=== PATIENT | male | born 1960 | race Caucasian/White ===

== ENCOUNTER 2021-08-18 07:17 | Emergency (ER) | payer MEDICAID ==
[~2021-08-18] VITALS: Ht 175.3 cm; Wt 74.8 kg
--- NOTE | 2021-08-18 07:51 | NUR ---
DR FAIRCHILD AT BEDSIDE FOR EVALUATION.
--- NOTE | 2021-08-18 08:06 | NUR ---
Patient does not wish to proceed with medical care recommended by Dr. Justin Mcelroy ). Patient given information related to possible complications, up to and including , which could occur as a result of leaving the hospital at this time. Patient verbalizes understanding of risks involved due to leaving against medical advice. Patient has signed AMA form.
== END 2021-08-18 08:10 | disposition home or self-care (01) ==
LOC: ER 07:17
DX: R10.9 Unspecified abdominal pain (principal)
CPT/HCPCS: A4663

== ENCOUNTER 2022-10-22 16:43 | Emergency (ER) | payer MEDICAID ==
[~2022-10-22] VITALS: Ht 175.3 cm; Wt 73.9 kg
[2022-10-22 18:07] LABS: *BILIRUBIN,URIN 1+ (NEGATIVE); *BLOOD, URINE 2+ (NEGATIVE); *CLARITY,URINE CLOUDY (CLEAR); *COLOR,URINE DARK YELLOW (YELLOW); *KETONES,URINE NEGATIVE (NEGATIVE); LEUKOCYTE ESTERASE ,URINE 1+ (NEGATIVE); NITRITE, URINE NEGATIVE (NEGATIVE); PH,URINE 5.5 (5.0-8.0); UGLUCOSE NEGATIVE (NEGATIVE)
[2022-10-22 18:28] LABS: HEMATOCRIT 43.2 % (36.7-47.1); MEAN CORPUSCULAR HEMOGLOBIN 31.3 uug (23.8-33.4); MEAN CORPUSCULAR VOLUME 93.1 fL (73.0-96.2); PLATELET COUNT (AUTO) 168 K/uL (152-348)
--- NOTE | 2022-10-22 18:30 | NUR ---
CT in process
[2022-10-22 18:34] LABS: CREATININE 1.3 mg/dL (0.6-1.3)
[2022-10-22 18:39] LABS: BILIRUBIN,DIRECT 0.3 mg/dL (0.0-0.2); BILIRUBIN,TOTAL 1.3 mg/dL (0.2-1.0); TOTAL PROTEIN, SERUM 7.3 g/dL (6.4-8.2)
[2022-10-22] MEDS ORDERED: SWABABLE VALVE TRANSFER SET EA MC ONE (18:41)
[2022-10-22] MEDS ORDERED: IOHEXOL 300MG/ML 100 ML INFUS..BTL ONE (18:41)
[2022-10-22] MEDS ORDERED: IV NORMAL SALINE 250 ML IV ONE (18:42)
[2022-10-22] MEDS ORDERED: IV NORMAL SALINE 500 ML IV ONE (20:15)
[2022-10-22 21:29] VITALS: BP 130/80; O2SAT 98
--- NOTE | 2022-10-22 21:29 | NUR ---
Patient discharged to home in stable condition. Written and verbal after care instructions given. Patient verbalizes understanding of instructions. Stressed follow up or return to ER for worsening s/s. Patient out of ER with steady gait, no acute signs of distress, VSS, all belongings taken, IV site discontinued.
[2022-10-23 03:07] LABS: BACTERIA,URINE MODERATE /HPF (NONE SEEN); SQUAMOUS EPITHELIAL CELL,UR FEW /HPF (NONE SEEN)
== END 2022-10-22 21:29 | disposition home or self-care (01) ==
LOC: ER 16:57
DX: K59.00 Constipation, unspecified (principal)
CPT/HCPCS: 99285; 74177; 96360; 80076; 80048; 81001; 83690; 85025; 36415; 83605; Q9967; J7040; A4663